=== PATIENT | female | born 1960 | race Caucasian/White ===

== ENCOUNTER 2017-01-06 19:53 | Emergency (ER) | payer MEDICARE ==
[2017-01-06 21:23] LABS: HEMOGLOBIN 11.8 gm/dl (12.3-15.3); RED BLOOD COUNT 3.99 M/UL (4.00-5.10); WHITE BLOOD COUNT 13.7 K/UL (4.5-11.0)
[2017-01-06 21:45] LABS: BUN/CREATININE RATIO 20 (0-10)
== END 2017-01-06 22:10 | disposition home or self-care (01) ==
LOC: ER1 19:53
PROVIDERS: Physician Assistant Medical
DX: S46.811A Strain of other muscles, fascia and tendons at shoulder and upper arm level, right arm, initial encounter (principal); Z88.1 Allergy status to other antibiotic agents; F17.210 Nicotine dependence, cigarettes, uncomplicated; X50.0XXA Overexertion from strenuous movement or load, initial encounter; Y93.89 Activity, other specified; Y92.009 Unspecified place in unspecified non-institutional (private) residence as the place of occurrence of the external cause
CPT/HCPCS: 36415; 73030; 80048; 85025; 96372; 99283; J1885

== ENCOUNTER → 2022-02-12 | Outpatient (CLI) | payer BC | LOC: KOH-I 15:13 | DX: M54.9 Dorsalgia, unspecified (principal); M47.812 Spondylosis without myelopathy or radiculopathy, cervical region; M41.84 Other forms of scoliosis, thoracic region; M41.86 Other forms of scoliosis, lumbar region | CPT/HCPCS: 72082 ==

== ENCOUNTER 2022-02-17 11:41 | Emergency (ER) | payer BC ==
[~2022-02-17] VITALS: Ht 160 cm; Wt 55.8 kg
[2022-02-17 12:53] LABS: HEMOGLOBIN 12.8 gm/dl (12.3-15.3); RED BLOOD COUNT 4.34 M/UL (4.00-5.10); WHITE BLOOD COUNT 8.1 K/UL (4.5-11.0)
[2022-02-17 14:17] LABS: BUN/CREATININE RATIO 20 (0-10)
== END 2022-02-18 08:12 | disposition short-term general hospital (02) ==
LOC: ER1 11:41
PROVIDERS: Nurse Practitioner
DX: I99.8 Other disorder of circulatory system (principal); I10 Essential (primary) hypertension; F17.200 Nicotine dependence, unspecified, uncomplicated; Z88.3 Allergy status to other anti-infective agents; Z20.822 Contact with and (suspected) exposure to COVID-19
CPT/HCPCS: 0240U; 70450; 73630; 80053; 81001; 85025; 85610; 85730; 93925; 93971; 96374; 99285; J1644; Q9967